=== PATIENT | female | born 1930 | race Caucasian/White ===

== ENCOUNTER 2016-07-13 05:20 | Observation (INO) | payer MEDICARE ==
[2016-07-13] VITALS (11 sets, daily range): BP systolic 122–168; BP diastolic 56–97; PULSE 77–123; TEMP 97.8–98.4
[~2016-07-13] VITALS: Ht 142.2 cm; Wt 56.0 kg
[~2016-07-13 05:20] MED LIST: ALDACTONE25 MG PO; ASPIR-LOW81 MG PO; ASPIRIN 32325 MG/TAB PO; ASPIRIN 81M81 MG/TA2 PO; ASPIRIN E.C. 8181 MG PO; CAPOTEN25 MG PO; CITALOPRAM20 MG PO; CLOPIDOGREL PO; COZAAR 50MG50 MG/TAB PO; FISH OIL CONC1000 MG PO; LEVOTHYROXINE0.1 MG PO; LOPRESSOR 550 MG/TAB PO; METOPROLOL100 MG PO; NITROQUICK0.4 MG SL; PLAVIX 75MG TAB75 MG PO; PRINIVIL10 MG PO; REMERON15 MG PO; ZOCOR 80MG80 MG PO; ZOCOR80 MG PO
[2016-07-13 05:50] LABS: BASO % 0.3 % (0.0-2.0); EOS % 0.5 % (0-4.0); GRAN # 3.5 (1.4-6.5); GRAN % 57.7 % (42.2-75.2); LYMPH # 1.6 (1.2-3.4); LYMPH % 26.8 % (20.0-51.0); MEAN CELL VOLUME 102 fl (80.0-100.0); MEAN CORPUSCULAR HGB CONC 32 g/dl (33.0-37.0); MEAN PLATELET VOLUME 9.5 fl (7.4-10.4); MONO # 0.9 (0.1-0.6); MONO % 14.2 % (1.7-9.3); PLATELET COUNT 201 K/mm3 (130-400); RED BLOOD COUNT 3.17 M/mm3 (4.10-5.30); REDCELL DISTRIBUTION WIDTH-CV 13.8 % (11.5-14.5); WHITE BLOOD COUNT 6.1 K/mm3 (4.8-10.8)
[2016-07-13 05:53] LABS: HEMATOCRIT 32.4 % (37.0-47.0); HEMOGLOBIN 10.3 g/dl (12.5-16.0); MEAN CORPUSCULAR HEMOGLOBIN 32 pg (27.0-31.0)
[2016-07-13 05:55] LABS: PROTHROMBIN TIME 11.3 SECONDS (9.7-12.8)
[2016-07-13 05:57] LABS: PARTIAL THROMBOPLASTIN TIME 27.1 SECONDS (26.0-37.0)
[2016-07-13 06:00] LABS: ADJUSTED CALCIUM 9.4 mg/dL (8.4-10.2); ALANINE AMINOTRANSFERASE 22 U/L (9-52); ALBUMIN 4.2 gm/dL (3.5-5.0); ALKALINE PHOSPHATASE 100 U/L (50-136); ANION GAP 14 mmol/L (7-16); BILIRUBIN,TOTAL 0.7 mg/dL (0.0-1.0); BLOOD UREA NITROGEN 25 mg/dL (7-17); CALCIUM 9.6 mg/dL (8.4-10.2); CARBON DIOXIDE 23 mmol/L (22-30); CHLORIDE 107 mmol/L (98-107); CREATININE, serum 0.82 mg/dL (0.52-1.25); GLUCOSE 98 mg/dL (74-106); LIPASE 123 U/L (23-300); POTASSIUM 4.3 mmol/L (3.4-5.0); SODIUM 143 mmol/L (137-145)
[2016-07-13 06:12] LABS: B-TYPE NATRIURETIC PEPTIDE 648 pg/mL (0-450); TROPONIN-I < 0.012 ng/mL (0.000-0.034)
[2016-07-13] MEDS ORDERED: NITROSTAT0.4 MG/TAB SL (08:51)
[2016-07-13] MEDS ORDERED: SYNTHROID0.1 MG/TAB PO (08:51)
[2016-07-13] MEDS ORDERED: LOPRESSOR 550 MG/TAB PO (08:52)
[2016-07-14 03:48] VITALS: BP 111/56; PULSE 80; TEMP 97.9
[2016-07-14 08:08] VITALS: BP 101/56; PULSE 84; TEMP 98.4
[2016-07-14] MEDS ORDERED: IMDUR 30MG30 MG/TAB PO (08:44)
== END 2016-07-14 10:20 | disposition home or self-care (01) ==
LOC: COL.ER 05:20 → MEDICAL 07:27
PROVIDERS: Emergency Medicine
DX: I20.0 Unstable angina (principal); I25.10 Atherosclerotic heart disease of native coronary artery without angina pectoris; I10 Essential (primary) hypertension; Z95.5 Presence of coronary angioplasty implant and graft; E05.90 Thyrotoxicosis, unspecified without thyrotoxic crisis or storm
CPT/HCPCS: A9502; G0378; J2785; J7030

== ENCOUNTER 2018-06-12 18:40 | Emergency (ER) | payer MEDICARE ==
[~2018-06-12] VITALS: Ht 149.9 cm; Wt 56.4 kg
[~2018-06-12 18:40] MED LIST changes: +IMDUR 30MG30 MG/TAB PO; +NITROSTAT0.4 MG/TAB SL; +SYNTHROID0.1 MG/TAB PO
[2018-06-12 18:45] VITALS: TEMP 97
[2018-06-12 23:50] VITALS: BP 128/70; PULSE 85
== END 2018-06-12 23:51 | disposition home or self-care (01) ==
LOC: COL.ER 18:40
DX: S01.01XA Laceration without foreign body of scalp, initial encounter (principal); S20.221A Contusion of right back wall of thorax, initial encounter; S80.12XA Contusion of left lower leg, initial encounter; E03.9 Hypothyroidism, unspecified; I10 Essential (primary) hypertension; Z79.02 Long term (current) use of antithrombotics/antiplatelets; I25.10 Atherosclerotic heart disease of native coronary artery without angina pectoris; W18.39XA Other fall on same level, initial encounter; W22.8XXA Striking against or struck by other objects, initial encounter; Y92.009 Unspecified place in unspecified non-institutional (private) residence as the place of occurrence of the external cause

== ENCOUNTER → 2018-10-07 | Outpatient (CLI) | payer MEDICARE | LOC: COL.RAD 10:38 | DX: M16.11 Unilateral primary osteoarthritis, right hip (principal) | CPT/HCPCS: J3301; Q9967 ==

== ENCOUNTER 2018-11-04 08:58 | Emergency (ER) | payer MEDICARE ==
[~2018-11-04] VITALS: Ht 157.5 cm; Wt 54.4 kg
[2018-11-04 09:00] VITALS: TEMP 97.2
[2018-11-04 09:51] LABS: HEMOGLOBIN 11.5 g/dl (12.5-16.0); MEAN CELL VOLUME 106 fl (80.0-100.0); MEAN CORPUSCULAR HEMOGLOBIN 33 pg (27.0-31.0); MEAN CORPUSCULAR HGB CONC 32 g/dl (33.0-37.0); MEAN PLATELET VOLUME 9.5 fl (7.4-10.4); PLATELET COUNT 183 K/mm3 (130-400); RED BLOOD COUNT 3.45 M/mm3 (4.10-5.30); REDCELL DISTRIBUTION WIDTH-CV 13.3 % (11.5-14.5)
[2018-11-04 09:56] LABS: ALBUMIN 4.1 gm/dL (3.5-5.0); BILIRUBIN,TOTAL 0.7 mg/dL (0.0-1.0); CALCIUM 9.4 mg/dL (8.4-10.2); CREATININE, serum 0.77 (0.52-1.25); POTASSIUM 3.8 mmol/L (3.4-5.0); TOTAL PROTEIN 6.9 gm/dL (6.4-8.2)
[2018-11-04 10:01] LABS: HEMATOCRIT 36.4 % (37.0-47.0)
[2018-11-04 10:14] LABS: LYMPHOCYTE 48 % (20.0-51.0); NEUTROPHILS 42 % (42.0-75.2); PLATELET ESTIMATE NORMAL (NORMAL)
[2018-11-04 10:15] LABS: HYPOCHROMIA 2+
[2018-11-04 10:26] LABS: TSH w REFLEX 0.577 uIU/mL (0.465-4.680)
[2018-11-04 10:45] LABS: COLLECTION METHOD CLEAN CATCH
[2018-11-04 10:48] LABS: TROPONIN-I 0.03 ng/mL (0.000-0.035)
[2018-11-04 10:57] LABS: PH 5 (5-8); URINE APPEARANCE Clear; URINE BACTERIA Rare /hpf; URINE BILIRUBIN Negative (NEGATIVE); URINE BLOOD 1+ (NEGATIVE); URINE COLOR Yellow; URINE GLUCOSE Negative (NEGATIVE); URINE KETONE Negative (NEGATIVE); URINE LEUKOCYTE ESTERASE Trace (NEGATIVE); URINE NITRATE Negative (NEGATIVE); URINE PROTEIN(semi-quant) Negative (NEGATIVE); URINE UROBILINOGEN Negative (NEGATIVE)
[2018-11-04] MEDS ORDERED: OMNICEF 300MG300 MG PO (12:44)
[2018-11-04 13:15] VITALS: BP 121/61; PULSE 98
[2018-11-04] MEDS ORDERED: ZOCOR 20MG20 MG PO (13:20)
[2018-11-04] MEDS ORDERED: NORVASC 5MG5 MG/TAB PO (13:20)
== END 2018-11-04 13:25 | disposition home or self-care (01) ==
LOC: COL.ER 08:58
PROVIDERS: Emergency Medicine
DX: S00.03XA Contusion of scalp, initial encounter (principal); N39.0 Urinary tract infection, site not specified; R00.0 Tachycardia, unspecified; I25.10 Atherosclerotic heart disease of native coronary artery without angina pectoris; I10 Essential (primary) hypertension; E03.9 Hypothyroidism, unspecified; Z79.02 Long term (current) use of antithrombotics/antiplatelets; W19.XXXA Unspecified fall, initial encounter; W22.8XXA Striking against or struck by other objects, initial encounter; Y92.009 Unspecified place in unspecified non-institutional (private) residence as the place of occurrence of the external cause
CPT/HCPCS: 99222-AI; A4216; J0696; J7030

== ENCOUNTER 2018-11-14 14:08 | Emergency (ER) | payer MEDICARE ==
[~2018-11-14 14:08] MED LIST changes: +NORVASC 5MG5 MG/TAB PO; +OMNICEF 300MG300 MG PO; +ZOCOR 20MG20 MG PO
[2018-11-14 14:39] VITALS: BP 121/56; PULSE 85; TEMP 98.6
== END 2018-11-14 14:48 | disposition home or self-care (01) ==
LOC: COL.ER 14:08
DX: S01.81XD Laceration without foreign body of other part of head, subsequent encounter (principal); X58.XXXD Exposure to other specified factors, subsequent encounter